=== PATIENT | female | born 1940 | race Caucasian/White ===

== ENCOUNTER 2023-01-31 10:35 | Outpatient (RCR) | payer MEDICARE, SELFPAY ==
[2023-01-31 10:34] VITALS: BP 149/70; PULSE 71; RESP 18; TEMP 36.4; O2SAT 94
--- NOTE | 2023-01-31 10:34 | PC.NURSE ---
Pt. to [facility] amb. using walker to assist. Daughter present. Seated in recliner. VSS. Denies c/o or needs. #22 gauge Iv initiated to left hand on first attempt. Flushes easily. Pt. tolerated without c/o. Pt. given juice. IV injectafer initiated as ordered.
--- NOTE | 2023-01-31 11:14 | PC.NURSE ---
IV Injectafer completed without s&s of adverse reaction. Pt. without c/o. IV d/c'd pressure to site. Pt. d/c'd to home amb. with daughter.
[2023-02-07 10:50] VITALS: BP 149/76; PULSE 73; RESP 18; TEMP 36.7; O2SAT 95
[2023-02-07] MEDS: FERRIC CARBOXYMALTOSE 750 MG in 0.9 % SODIUM CHLORIDE 250 ML 1000 MG IV (11:04)
--- NOTE | 2023-02-07 11:25 | PC.NURSE ---
Patient is here for Injectafer infusion, she tolerated this well. Her IV was started without complication, pain, or redness. Patient completed infusion and denies any infusion reactions, she was discharged home with her family.
== END 2023-02-13 23:59 | disposition home or self-care (01) ==
LOC: INF 10:35
PROVIDERS: PCP Family Medicine; Visit Provider Family Medicine
DX: E61.1 Iron deficiency (principal); K90.9 Intestinal malabsorption, unspecified; Z86.2 Personal history of diseases of the blood and blood-forming organs and certain disorders involving the immune mechanism; I35.0 Nonrheumatic aortic (valve) stenosis; I51.7 Cardiomegaly; F41.1 Generalized anxiety disorder
CPT/HCPCS: 96365; J1439